=== PATIENT | female | born 1955 | race Caucasian/White ===

== ENCOUNTER 2022-01-28 09:49 | Inpatient (IN) | payer MEDICARE, OTHER ==
[~2022-01-28 09:49] MED LIST: AZO BLADDER CO300 MG; FISH OIL 1,0001 EACH PO; PROBIOTIC & AC1 EACH PO; RESTASIS1 EACH; SYNTHROID100 MCG PO; SYNTHROID112 MCG PO; TUMERIC PO; ZINC OXIDE PO
[2022-01-28] MEDS ORDERED: GENTAMICIN 80MG/NS 100 ML 100 ML IV ONE ×2 (10:30→13:56)
[2022-01-28] MEDS ORDERED: PIPERACILLIN/TAZOBACTAM 3.375 GM VIAL ONE (10:31)
[2022-01-28] MEDS ORDERED: PHENAZOPYRIDINE HCL 100 MG TAB PO PRN (13:15)
[2022-01-28] MEDS ORDERED: ONDANSETRON HCL INJ 2MG/ML 2ML 2 MG/ML VIAL IV PRN (13:15)
[2022-01-28] MEDS ORDERED: NALOXONE HCL INJ 0.4 MG/ML AMP IV PRN (13:15)
[2022-01-28] MEDS ORDERED: DIPHENHYDRAMINE HCL 25 MG CAP PO PRN (13:15)
[2022-01-28] MEDS ORDERED: LIDOCAINE 2%/ EPINEPHRINE 20ML MDV ONE (13:23)
[2022-01-28] MEDS ORDERED: IOPAMIDOL 610MG/1ML 300 MG/ML VIAL IV ONE (13:23)
[2022-01-28] MEDS ORDERED: BACITRACIN ZINC 15 GM OINT ONE (13:24)
[2022-01-28] MEDS ORDERED: BUPIVACAINE HCL 0.5% 10ML MPF VIAL INJ ONE (13:25)
[2022-01-28] MEDS ORDERED: GLYCOPYRROLATE INJ 0.2 MG/ML VIAL ONE (14:11)
[2022-01-28] MEDS ORDERED: SEVOFLURANE INHAL SOLN 250 ML PEN BTL ONE (14:11)
[2022-01-28] MEDS ORDERED: ONDANSETRON HCL INJ 2MG/ML 2ML 2 MG/ML VIAL ONE (14:11)
[2022-01-28] MEDS ORDERED: PROPOFOL IV EMULSION 10 MG/ML 20 ML VIAL ONE (14:11)
[2022-01-28] MEDS ORDERED: LIDOCAINE HCL 2% LOCAL INJ 5 ML SDV VIAL INJ ONE (14:11)
[2022-01-28] MEDS ORDERED: DEXAMETHASONE SOD PHOS INJ 4 MG/ML SDV ONE (14:11)
[2022-01-28] MEDS: MORPHINE SULFATE 1 MG/ML 30ML PCA IV PRN (15:37)
[2022-01-28 16:00] LABS: BASOPHILS % 0.8 % (0.0-1.0); EOSINOPHILS # (AUTO) 0.1 (0.0-0.4); EOSINOPHILS % 1.7 % (0.0-6.0); HEMATOCRIT 43.9 % (34.2-44.1); HEMOGLOBIN 13.6 g/dL (12.0-16.0); LYMPHOCYTES # (AUTO) 0.9 (1.0-3.2); LYMPHOCYTES % 24.2 % (18.0-39.1); MEAN CORPUSCULAR HEMOGLOBIN 29.1 pg (28-32); MEAN CORPUSCULAR VOLUME 93.8 fL (81-99); MONOCYTES # (AUTO) 0.1 (0.2-0.8); MONOCYTES % 1.9 % (4.4-11.3); NEUTROPHILS # (AUTO) 2.6 (2.1-6.9); NEUTROPHILS % 71.1 % (38.7-80.0); PLATELET COUNT 186 x10e3/uL (140-360); RED BLOOD COUNT 4.68 x10e6/uL (3.6-5.1); RED CELL DISTRIBUTION WIDTH 12.7 % (11.7-14.4)
[2022-01-28 16:18] LABS: ANION GAP 16.4 mmol/L (8-16); CALCIUM 8.7 mg/dL (8.4-10.2); CREATININE, SERUM 0.92 mg/dL (0.57-1.11); POTASSIUM 4.4 mmol/L (3.5-5.1)
[2022-01-28] MEDS: D5.45%NS/KCL 20MEQ 1,000 ML IV SCH ×2 (16:20→21:15)
[2022-01-28] MEDS: DOCUSATE SODIUM 100 MG CAP PO SCH (16:21)
[2022-01-28 16:23] VITALS: BP 133/67
[2022-01-28] MEDS ORDERED: ACETAMINOPHEN 1000 MG/100 ML IV PRN (18:00)
[2022-01-28 18:10] VITALS: BP 133/67
[2022-01-28 20:00] VITALS: BP 123/72
[2022-01-28] MEDS ORDERED: LEVOTHYROXINE SODIUM 112 MCG TAB PO SCH (23:30)
[2022-01-29] VITALS (9 sets, daily range): BP systolic 105–123; BP diastolic 53–72
[2022-01-29] MEDS: D5.45%NS/KCL 20MEQ 1,000 ML IV SCH ×2 (00:54→09:21)
[2022-01-29 05:22] LABS: BASOPHILS % 0.6 % (0.0-1.0); EOSINOPHILS % 0.2 % (0.0-6.0); HEMATOCRIT 29.8 % (34.2-44.1); LYMPHOCYTES # (AUTO) 0.9 (1.0-3.2); MEAN CORPUSCULAR HEMOGLOBIN 29.5 pg (28-32); MEAN CORPUSCULAR HGB CONC 33.6 g/dL (31-35); MEAN CORPUSCULAR VOLUME 87.9 fL (81-99); MONOCYTES # (AUTO) 0.5 (0.2-0.8); MONOCYTES % 9.8 % (4.4-11.3); NEUTROPHILS # (AUTO) 3.4 (2.1-6.9); NEUTROPHILS % 71.2 % (38.7-80.0); PLATELET COUNT 159 x10e3/uL (140-360); RED BLOOD COUNT 3.39 x10e6/uL (3.6-5.1); RED CELL DISTRIBUTION WIDTH 12.9 % (11.7-14.4)
[2022-01-29 05:42] LABS: ANION GAP 12.7 mmol/L (8-16); CALCIUM 8.1 mg/dL (8.4-10.2); CREATININE, SERUM 0.84 mg/dL (0.57-1.11); POTASSIUM 4.7 mmol/L (3.5-5.1)
[2022-01-29] MEDS: MORPHINE SULFATE 1 MG/ML 30ML PCA IV PRN (09:10)
[2022-01-29] MEDS: DOCUSATE SODIUM 100 MG CAP PO SCH ×2 (09:15→17:23)
[2022-01-29] MEDS ORDERED: Morphine 4mg INJECTION 4 MG/ML INJ IV PRN (10:00)
[2022-01-29] MEDS ORDERED: ACETAMINOPHEN/CODEINE 300MG - 30MG TAB PO PRN (11:15)
[2022-01-29] MEDS: ACETAMINOPHEN/CODEINE 300MG - 30MG TAB PO PRN ×2 (15:10→21:46)
[2022-01-29] MEDS ORDERED: LEVOTHYROXINE SODIUM 100 MCG TAB PO SCH (21:00)
[2022-01-29] MEDS ORDERED: LEVOTHYROXINE SODIUM 112 MCG TAB PO SCH (21:00)
[2022-01-30] VITALS: BP 97/49
[2022-01-30 04:00] VITALS: BP 100/45
[2022-01-30 05:38] LABS: EOSINOPHILS # (AUTO) 0.1 (0.0-0.4); EOSINOPHILS % 3.3 % (0.0-6.0); HEMOGLOBIN 10.7 g/dL (12.0-16.0); LYMPHOCYTES # (AUTO) 1.5 (1.0-3.2); LYMPHOCYTES % 38.5 % (18.0-39.1); MEAN CORPUSCULAR HEMOGLOBIN 29.4 pg (28-32); MEAN CORPUSCULAR HGB CONC 33.4 g/dL (31-35); MEAN CORPUSCULAR VOLUME 87.9 fL (81-99); MONOCYTES # (AUTO) 0.3 (0.2-0.8); MONOCYTES % 8.3 % (4.4-11.3); NEUTROPHILS # (AUTO) 1.9 (2.1-6.9); NEUTROPHILS % 48.6 % (38.7-80.0); PLATELET COUNT 177 x10e3/uL (140-360); RED BLOOD COUNT 3.64 x10e6/uL (3.6-5.1); RED CELL DISTRIBUTION WIDTH 13.2 % (11.7-14.4)
[2022-01-30 05:54] LABS: ANION GAP 12.5 mmol/L (8-16); CALCIUM 8.4 mg/dL (8.4-10.2); CREATININE, SERUM 0.96 mg/dL (0.57-1.11); POTASSIUM 4.5 mmol/L (3.5-5.1)
[2022-01-30] MEDS: ACETAMINOPHEN/CODEINE 300MG - 30MG TAB PO PRN (06:25)
[2022-01-30 07:32] VITALS: BP 113/55
[2022-01-30 08:42] VITALS: BP 113/55
[2022-01-30] MEDS: DOCUSATE SODIUM 100 MG CAP PO SCH (10:02)
[2022-01-30 11:48] VITALS: BP 110/62
[2022-01-30] MEDS ORDERED: LEVOTHYROXINE SODIUM 112 MCG TAB PO SCH (21:00)
== END 2022-01-30 14:16 | disposition home or self-care (01) | DRG 748 ==
LOC: OR 09:49 → PACU V 15:34 → MED/SURG 15:57
PROVIDERS: ADMIT Internal Medicine; ATTEND Internal Medicine
PROC: 0JUC0KZ Supplement of Pelvic Region Subcutaneous Tissue and Fascia with Nonautologous Tissue Substitute, Open Approach (ICD-10-PCS; 2022-01-28)
PROC: 0UU Female Reproductive System, Supplement (ICD-10-PCS; 2022-01-28)
PROC: 0TSD0ZZ Reposition Urethra, Open Approach (ICD-10-PCS; 2022-01-28)
PROC: 0T788ZZ Dilation of Bilateral Ureters, Via Natural or Artificial Opening Endoscopic (ICD-10-PCS; 2022-01-28)
PROC: BT141ZZ Fluoroscopy of Kidneys, Ureters and Bladder using Low Osmolar Contrast (ICD-10-PCS; principal; 2022-01-28 13:14)
DX: N81.12 Cystocele, lateral (principal); N13.30 Unspecified hydronephrosis; N39.0 Urinary tract infection, site not specified; Z20.822 Contact with and (suspected) exposure to COVID-19; N95.2 Postmenopausal atrophic vaginitis; N39.3 Stress incontinence (female) (male)
CPT/HCPCS: 36415; 71046; 74420; 80048; 83735; 85025; 93005; C1713; C1752; C1758; J1100; J1580; J2001; J2270; J2405; J2543